=== PATIENT | male | born 1960 | race Two or more races ===

== ENCOUNTER → 2019-07-04 | Outpatient (CLI) | payer MEDICAID, MEDICARE | END | disposition home or self-care (01) | LOC: XYW 09:17 | PROVIDERS: ATTEND Internal Medicine | DX: I50.9 Heart failure, unspecified (principal) | CPT/HCPCS: 36600; 82805 ==

== ENCOUNTER → 2019-12-26 | Outpatient (CLI) | payer MEDICARE, MEDICAID | END | disposition home or self-care (01) | LOC: LAB 12:58 | PROVIDERS: ATTEND Internal Medicine | DX: I50.9 Heart failure, unspecified (principal); R05 Cough | CPT/HCPCS: 36415; 85379 ==

== ENCOUNTER 2020-01-03 15:37 | Emergency (ER) | payer MEDICARE, MEDICAID ==
[~2020-01-03] VITALS: Ht 167.6 cm; Wt 90.7 kg
[2020-01-03 19:03] VITALS: BP 123/77
== END 2020-01-03 19:16 | disposition home or self-care (01) ==
LOC: ER 15:37
DX: H57.11 Ocular pain, right eye (principal)
CPT/HCPCS: 70450

== ENCOUNTER → 2020-01-16 | Outpatient (CLI) | payer MEDICARE, MEDICAID | END | disposition home or self-care (01) | LOC: RT 11:37 | PROVIDERS: ATTEND Internal Medicine Pulmonary Disease | DX: R06.00 Dyspnea, unspecified (principal); R05 Cough | CPT/HCPCS: 94060 ==

== ENCOUNTER → 2020-02-06 | Outpatient (CLI) | payer MEDICARE, MEDICAID | END | disposition home or self-care (01) | LOC: LAB 10:55 | PROVIDERS: ATTEND Internal Medicine | DX: N18.6 End stage renal disease (principal); I50.9 Heart failure, unspecified; D64.9 Anemia, unspecified | CPT/HCPCS: 36415; 83880; 85652 ==

== ENCOUNTER 2020-03-19 15:10 | Inpatient (IN) | payer MEDICARE, MEDICAID ==
[~2020-03-19] VITALS: Ht 167.6 cm; Wt 90.7 kg
[2020-03-19] MEDS ORDERED: DexAMETHasone SOD PHOS 10MG/1ML VIAL INJ IV ONE (15:30)
[2020-03-19] MEDS ORDERED: AMIODARONE 450mg/250ml AE 250 ML IV SCH ×2 (17:00)
[2020-03-19] MEDS ORDERED: AMIODARONE HCL 150 MG in D5W 5% 100 ML IV ONE ×4 (17:00)
[2020-03-19] MEDS ORDERED: cloNIDine HCL 0.1 MG TAB PO ONE ×2 (17:00)
[2020-03-19] MEDS ORDERED: MORPHINE SULFATE INJECTION 2 MG/ML SYRG IV PRN ×3 (17:15→21:15)
[2020-03-19] MEDS ORDERED: NITROGLYCERIN 0.4 MG SL TAB SL PRN ×2 (17:15→21:15)
[2020-03-19] MEDS: NOREPINEPHRINE 8 MG/250ML KIT 250 ML IV SCH (17:15)
[2020-03-19] MEDS ORDERED: [UNRECOGNIZED DRUG - CODE] PO (17:18)
[2020-03-19] MEDS ORDERED: FURO40TA4 PO (17:23)
[2020-03-19] MEDS ORDERED: GLIP-110 PO (17:24)
[2020-03-19] MEDS ORDERED: DOXYCYCLINE 100MG/250ML 250 ML IV ONE (17:30)
[2020-03-19] MEDS ORDERED: LORazepam 2MG/ML-1ML VIAL IV ONE (18:00)
[2020-03-19 18:17] LABS: Albumin 2.9 g/dL (3.4-5.0); Calcium 9.7 mg/dL (8.5-10.1)
[2020-03-19 18:22] LABS: Basophils # (auto) 0 10 ^3/uL (0-0.2); Basophils % (auto) 0.4 % (0.0-2.0); Eosinophils # (auto) 0 10 ^3/uL (0-0.8); Eosinophils % (auto) 0.1 % (0.0-7.0); Hematocrit 46.1 % (41.0-53.0); Hemoglobin 15.1 g/dL (13.5-17.5); Lymphocytes # (auto) 0.3 10 ^3/uL (0.4-5.4); Lymphocytes % (auto) 7.1 % (10.0-50.0); Mean Corpuscular Hgb Conc. 32.8 g/dL (32.0-36.0); Mean Corpuscular Volume 91.6 fL (80.0-100.0); Monocytes # (auto) 0.1 10 ^3/uL (0-1.3); Monocytes % (auto) 4.1 % (0.0-12.0); Neutrophils # (auto) 3.2 10 ^3/uL (1.6-8.6); Neutrophils % (auto) 88.3 % (37.0-80.0); Nucleated Red Blood Cells % 0.3 %; Red Blood Cells 5.04 10^6/uL (4.5-5.90); Red Cell Distribution Width 17.6 % (11.8-14.3); White Blood Cell 3.7 10^3/uL (4.4-10.8)
[2020-03-19 18:26] LABS: BUN/Creatinine Ratio 8.4; CRP High Sensitivity 17.2 mg/dL (< 0.3)
[2020-03-19] MEDS ORDERED: IOHEXOL 350 MG/ML 100ML IJ ONE (18:37)
[2020-03-19] MEDS ORDERED: dilTIAZem 125mg/125ml BAG KIT 125 ML IV SCH (19:45)
[2020-03-19] MEDS ORDERED: LORazepam 0.5 MG TAB PO PRN (21:15)
[2020-03-19] MEDS ORDERED: ONDANSETRON HCL 4 MG/2 ML VIAL IV PRN (21:15)
[2020-03-19] MEDS ORDERED: HYDROcodone-ACET 5/325MG TAB PO PRN (21:15)
[2020-03-19] MEDS ORDERED: DEXTROSE (50%) 50ML SYRG IV PRN (21:15)
[2020-03-19] MEDS ORDERED: ACETAMINOPHEN 500 MG TAB PO PRN (21:15)
[2020-03-19] MEDS ORDERED: ALUM & MAG HYDROX-SIMETH LIQ(MAALOX) 30 ML PO PRN (21:15)
[2020-03-19] MEDS ORDERED: ALBUTEROL SULF HFA 90MCG INH 200DOSE IN PRN (21:15)
[2020-03-19] MEDS ORDERED: DOCUSATE SOD 100 MG CAP PO PRN (21:15)
[2020-03-19] MEDS: FUROSEMIDE 20 MG/2 ML VIAL IV SCH (21:35)
[2020-03-19] MEDS ORDERED: DOXYCYCLINE 100MG/250ML 250 ML IV SCH ×2 (22:00)
[2020-03-19] MEDS: BUDESONIDE (INHALATION) 180 MCG IH IN SCH (22:00)
[2020-03-19] MEDS ORDERED: ENOXAPARIN SOD 100 MG/1 ML SYRINGE SC ONE (22:00)
[2020-03-19 22:07] LABS: INR 1.38 (0.9-1.15); Partial Thromboplastin Time 34.5 sec (23.0-31.2)
[2020-03-19] MEDS: CHOLECALCIFEROL (VITD3) 2,000 UNIT CAP/TAB PO SCH (22:50)
[2020-03-19] MEDS: ZINC SULFATE 220mg CAP or TAB PO SCH (22:50)
[2020-03-19] MEDS: ASCORBIC ACID 1,000 MG TAB PO SCH (22:50)
[2020-03-19] MEDS: ACCU-CHEK COMFORT CURVE STRIP VI SCH (23:45)
[2020-03-19] MEDS: InsuLIN REG 1unit/0.01ml Soln (100units/ml) SC SCH (23:45)
[2020-03-20 01:08] LABS: Lactic Acid w/Reflex 2.7 mmol/L (0.4-2.0)
[2020-03-20] MEDS: FUROSEMIDE 20 MG/2 ML VIAL IV SCH ×2 (03:42→06:00)
[2020-03-20] MEDS ORDERED: FUROSEMIDE 40 MG/4 ML VIAL ONE (06:17)
[2020-03-20] MEDS: ACCU-CHEK COMFORT CURVE STRIP VI SCH ×4 (07:00→22:00)
[2020-03-20] MEDS: InsuLIN REG 1unit/0.01ml Soln (100units/ml) SC SCH ×4 (07:00→23:10)
[2020-03-20 07:01] LABS: Basophils # (auto) 0 10 ^3/uL (0-0.2); Basophils % (auto) 0.3 % (0.0-2.0); Eosinophils # (auto) 0 10 ^3/uL (0-0.8); Hematocrit 45.3 % (41.0-53.0); Hemoglobin 15.1 g/dL (13.5-17.5); Lymphocytes # (auto) 0.3 10 ^3/uL (0.4-5.4); Lymphocytes % (auto) 4.6 % (10.0-50.0); Mean Corpuscular Hemoglobin 30.2 pg (28.0-32.0); Mean Corpuscular Hgb Conc. 33.2 g/dL (32.0-36.0); Mean Corpuscular Volume 90.8 fL (80.0-100.0); Monocytes # (auto) 0.2 10 ^3/uL (0-1.3); Monocytes % (auto) 2.7 % (0.0-12.0); Neutrophils # (auto) 5.8 10 ^3/uL (1.6-8.6); Neutrophils % (auto) 92.4 % (37.0-80.0); Nucleated Red Blood Cells % 0.3 %; Red Blood Cells 4.99 10^6/uL (4.5-5.90); Red Cell Distribution Width 17.2 % (11.8-14.3); White Blood Cell 6.2 10^3/uL (4.4-10.8)
[2020-03-20 07:22] LABS: INR 1.35 (0.9-1.15); Partial Thromboplastin Time 37.2 sec (23.0-31.2)
[2020-03-20 07:48] LABS: Potassium 4.4 mmol/L (3.5-5.1)
[2020-03-20 08:02] LABS: Albumin 2.6 g/dL (3.4-5.0); BUN/Creatinine Ratio 9.7; Bilirubin, Total 2.4 mg/dL (0.2-1.0); CRP High Sensitivity 17.9 mg/dL (< 0.3); Calcium 9.2 mg/dL (8.5-10.1); Phosphorus 8.6 mg/dL (2.5-4.90); Total Protein 6.6 g/dL (6.4-8.2)
[2020-03-20] MEDS: BUDESONIDE (INHALATION) 180 MCG IH IN SCH ×2 (10:00→22:00)
[2020-03-20] MEDS ORDERED: IVERMECTIN 3 MG TAB PO ONE (10:00)
[2020-03-20] MEDS: ASCORBIC ACID 1,000 MG TAB PO SCH (10:00)
[2020-03-20] MEDS: CHOLECALCIFEROL (VITD3) 2,000 UNIT CAP/TAB PO SCH (10:00)
[2020-03-20] MEDS: ZINC SULFATE 220mg CAP or TAB PO SCH (10:00)
[2020-03-20] MEDS: DOXYCYCLINE 100MG/250ML 250 ML IV SCH ×2 (10:00→21:58)
[2020-03-20] MEDS: DexAMETHasone SOD PHOS 10MG/1ML VIAL INJ IV SCH (10:00)
[2020-03-20] MEDS ORDERED: SODIUM CHL 0.9% 1000 ML BAG XX ONE (10:00)
[2020-03-20] MEDS ORDERED: ENOXAPARIN SOD 100 MG/1 ML SYRINGE SC SCH (10:00)
[2020-03-20] MEDS ORDERED: REMDESIVIR PER PHARMACY 0 ML IV SCH (12:15)
[2020-03-20] MEDS ORDERED: diphenhdrAMINE HCL 50 MG/1 ML VL IV PRN (12:15)
[2020-03-20] MEDS ORDERED: REMDESIVIR 200 MG in NS 210ml LOADING DOSE ADULT IV ONE (15:00)
[2020-03-20 15:30] VITALS: BP 119/56
[2020-03-20] MEDS: NOREPINEPHRINE 8 MG/250ML KIT 250 ML IV SCH (17:15)
[2020-03-20 18:00] VITALS: BP 119/59
[2020-03-20] MEDS ORDERED: FUROSEMIDE 40 MG/4 ML VIAL IV SCH (18:00)
[2020-03-20] MEDS: METOPROLOL SUCCINATE XL 50 MG TAB PO SCH (22:03)
[2020-03-20 22:10] VITALS: BP 110/55
[2020-03-21 03:00] VITALS: BP 104/45
[2020-03-21] MEDS: ACCU-CHEK COMFORT CURVE STRIP VI SCH ×4 (05:51→22:00)
[2020-03-21] MEDS: InsuLIN REG 1unit/0.01ml Soln (100units/ml) SC SCH ×4 (05:52→21:55)
[2020-03-21 07:19] LABS: Albumin 2.4 g/dL (3.4-5.0); Calcium 8.4 mg/dL (8.5-10.1); Potassium 4.1 mmol/L (3.5-5.1)
[2020-03-21 07:20] VITALS: BP 118/53
[2020-03-21 07:24] LABS: Bilirubin, Total 1.8 mg/dL (0.2-1.0)
[2020-03-21] MEDS ORDERED: LORazepam 2MG/ML-1ML VIAL ONE (09:38)
[2020-03-21] MEDS ORDERED: LORazepam 2MG/ML-1ML VIAL IV PRN (09:45)
[2020-03-21] MEDS: BUDESONIDE (INHALATION) 180 MCG IH IN SCH (10:00)
[2020-03-21] MEDS: ASCORBIC ACID 1,000 MG TAB PO SCH ×2 (10:11→10:39)
[2020-03-21] MEDS: DOXYCYCLINE 100MG/250ML 250 ML IV SCH ×2 (10:11→22:00)
[2020-03-21] MEDS: DexAMETHasone SOD PHOS 10MG/1ML VIAL INJ IV SCH (10:11)
[2020-03-21] MEDS: CHOLECALCIFEROL (VITD3) 2,000 UNIT CAP/TAB PO SCH ×2 (10:11→10:39)
[2020-03-21] MEDS: ZINC SULFATE 220mg CAP or TAB PO SCH ×2 (10:11→10:38)
[2020-03-21] MEDS: METOPROLOL SUCCINATE XL 50 MG TAB PO SCH ×3 (10:11→22:00)
[2020-03-21 12:00] VITALS: BP 117/64
[2020-03-21] MEDS ORDERED: ETOMIDATE (2MG/ML) 20ML VIAL IV ONE (12:53)
[2020-03-21] MEDS ORDERED: ROCURONIUM 10MG/ML 10ML VIAL IV ONE ×2 (12:53→13:45)
[2020-03-21] MEDS ORDERED: fentaNYL Drip 2500mCg/250mlNS 250 ML IV ONE (12:59)
[2020-03-21] MEDS ORDERED: MIDAZOLAM DRIP 50 mg/50mL 50 ML IV ONE (12:59)
[2020-03-21 13:19] LABS: Hepatitis B Surface Antigen Negative (Negative)
[2020-03-21 13:20] LABS: Hepatitis A Ab IgM Negative; Hepatitis B Core IgM Negative; Hepatitis C Antibody Negative (Negative)
[2020-03-21] MEDS: fentaNYL Drip 2500mCg/250mlNS 250 ML IV SCH (13:20)
[2020-03-21] MEDS: MIDAZOLAM DRIP 50 mg/50mL 50 ML IV SCH ×2 (13:21→21:42)
[2020-03-21] MEDS ORDERED: NOREPINEPHRINE 8 MG/250ML KIT 250 ML IV ONE (14:28)
[2020-03-21] MEDS: NOREPINEPHRINE 8 MG/250ML KIT 250 ML IV SCH (14:28)
[2020-03-21] MEDS ORDERED: FAMOTIDINE (10MG/ML) 2ML VL IV SCH (15:25)
[2020-03-21] MEDS ORDERED: ONDANSETRON HCL 4 MG/2 ML VIAL IV PRN (16:15)
[2020-03-21] MEDS ORDERED: MORPHINE SULFATE INJECTION 2 MG/ML SYRG IV PRN (16:15)
[2020-03-21] MEDS: REMDESIVIR 100mg 100 MG in SODIUM CHL 0.9% 230 ML IV SCH (16:53)
[2020-03-21 18:30] VITALS: BP 99/56
[2020-03-21 22:30] VITALS: BP 97/56
[2020-03-22] MEDS: MIDAZOLAM DRIP 50 mg/50mL 50 ML IV SCH (00:50)
[2020-03-22 02:10] VITALS: BP 98/56
[2020-03-22] MEDS ORDERED: dilTIAZem 25 MG/5 ML VIAL IV PRN (04:00)
[2020-03-22] MEDS: InsuLIN REG 1unit/0.01ml Soln (100units/ml) SC SCH ×2 (05:58→11:48)
[2020-03-22] MEDS: ACCU-CHEK COMFORT CURVE STRIP VI SCH ×2 (05:59→12:57)
[2020-03-22 06:21] LABS: Basophils # (auto) 0.1 10 ^3/uL (0-0.2); Basophils % (auto) 0.3 % (0.0-2.0); Eosinophils # (auto) 0 10 ^3/uL (0-0.8); Hematocrit 52.3 % (41.0-53.0); Hemoglobin 17.1 g/dL (13.5-17.5); Lymphocytes # (auto) 0.8 10 ^3/uL (0.4-5.4); Lymphocytes % (auto) 4.3 % (10.0-50.0); Mean Corpuscular Hemoglobin 29.7 pg (28.0-32.0); Mean Corpuscular Hgb Conc. 32.7 g/dL (32.0-36.0); Mean Corpuscular Volume 90.8 fL (80.0-100.0); Monocytes # (auto) 0.8 10 ^3/uL (0-1.3); Monocytes % (auto) 4.8 % (0.0-12.0); Neutrophils # (auto) 15.8 10 ^3/uL (1.6-8.6); Neutrophils % (auto) 90.6 % (37.0-80.0); Nucleated Red Blood Cells % 2.2 %; Red Blood Cells 5.76 10^6/uL (4.5-5.90); Red Cell Distribution Width 17.5 % (11.8-14.3); White Blood Cell 17.5 10^3/uL (4.4-10.8)
[2020-03-22 06:37] LABS: Albumin 2.6 g/dL (3.4-5.0); BUN/Creatinine Ratio 10.5; Calcium 8.5 mg/dL (8.5-10.1); Potassium 5.3 mmol/L (3.5-5.1)
[2020-03-22 06:40] LABS: Bilirubin, Total 2.4 mg/dL (0.2-1.0); Total Protein 7.2 g/dL (6.4-8.2)
[2020-03-22 06:51] VITALS: BP 109/93
[2020-03-22] MEDS: BUDESONIDE (INHALATION) 180 MCG IH IN SCH (07:44)
[2020-03-22] MEDS: ASCORBIC ACID 1,000 MG TAB PO SCH (10:00)
[2020-03-22] MEDS: ZINC SULFATE 220mg CAP or TAB PO SCH (10:00)
[2020-03-22] MEDS: DexAMETHasone SOD PHOS 10MG/1ML VIAL INJ IV SCH (10:00)
[2020-03-22] MEDS: DOXYCYCLINE 100MG/250ML 250 ML IV SCH (10:00)
[2020-03-22] MEDS: CHOLECALCIFEROL (VITD3) 2,000 UNIT CAP/TAB PO SCH (10:00)
[2020-03-22] MEDS: METOPROLOL SUCCINATE XL 50 MG TAB PO SCH (10:00)
[2020-03-22 10:45] VITALS: BP 183/94
[2020-03-22] MEDS: fentaNYL Drip 2500mCg/250mlNS 250 ML IV SCH (13:17)
[2020-03-22 14:10] VITALS: BP 144/66
[2020-03-22] MEDS ORDERED: BUMETANIDE 2.5mg/10ml (0.25 mg/ml) INJ IV SCH (15:00)
[2020-03-22] MEDS: REMDESIVIR 100mg 100 MG in SODIUM CHL 0.9% 230 ML IV SCH (15:00)
[2020-03-22] MEDS ORDERED: MORPHINE SULFATE INJECTION 2 MG/ML SYRG ONE (17:43)
[2020-03-22] MEDS ORDERED: LORazepam 2MG/ML-1ML VIAL ONE (17:43)
[2020-03-22] MEDS ORDERED: LORazepam 2MG/ML-1ML VIAL IV PRN (17:45)
[2020-03-22] MEDS ORDERED: MORPHINE SULFATE INJECTION 2 MG/ML SYRG IV PRN (17:45)
[2020-03-22 17:50] VITALS: BP 171/51
[2020-03-22] MEDS ORDERED: SODIUM BICARBONATE 8.4% INJ 50ML SYRINGE IV ONE (17:57)
[2020-03-22] MEDS ORDERED: EPINEPHrine HCL 1 MG/10 ML SYRG IV ONE (17:57)
[2020-03-22] MEDS ORDERED: DOPamine 1600mCg/ml 400MG/250ml NSorD5 KIT/BAG IV ONE (17:57)
[2020-03-22] MEDS ORDERED: SODIUM CHL 0.9% 1000 ML BAG XX ONE (19:00)
[2020-03-22] MEDS ORDERED: EPOETIN ALFA 4,000 UNIT/ML VL SC ONE (21:00)
[2020-03-23] MEDS ORDERED: SODIUM CHL 0.9% 1000 ML BAG XX ONE (07:00)
[2020-03-23] MEDS ORDERED: ENOXAPARIN SOD 30 MG/0.3 ML SYRINGE SC SCH (10:00)
[2020-03-23] MEDS ORDERED: EPOETIN ALFA 4,000 UNIT/ML VL SC ONE (21:00)
== END 2020-03-22 17:58 | DRG 871 ==
LOC: ER 15:10 → TELE 15:11
PROVIDERS: ADMIT Hospitalist; ATTEND Internal Medicine
PROC: 5A09357 Assistance with Respiratory Ventilation, Less than 24 Consecutive Hours, Continuous Positive Airway Pressure (ICD-10-PCS; 2020-03-20)
PROC: 5A1D70Z Performance of Urinary Filtration, Intermittent, Less than 6 Hours Per Day (ICD-10-PCS; 2020-03-20)
PROC: 02HV33Z Insertion of Infusion Device into Superior Vena Cava, Percutaneous Approach (ICD-10-PCS; principal; 2020-03-21)
PROC: 5A1935Z Respiratory Ventilation, Less than 24 Consecutive Hours (ICD-10-PCS; 2020-03-21)
PROC: B548ZZA Ultrasonography of Superior Vena Cava, Guidance (ICD-10-PCS; 2020-03-21)
PROC: 0BH17EZ Insertion of Endotracheal Airway into Trachea, Via Natural or Artificial Opening (ICD-10-PCS; 2020-03-21)
PROC: 04HY32Z Insertion of Monitoring Device into Lower Artery, Percutaneous Approach (ICD-10-PCS; 2020-03-21)
PROC: 4A133B1 Monitoring of Arterial Pressure, Peripheral, Percutaneous Approach (ICD-10-PCS; 2020-03-21)
PROC: 4A133J1 Monitoring of Arterial Pulse, Peripheral, Percutaneous Approach (ICD-10-PCS; 2020-03-21)
DX: A41.89 Other specified sepsis (principal); U07.1 COVID-19; J12.82 Pneumonia due to coronavirus disease 2019; J96.01 Acute respiratory failure with hypoxia; N18.6 End stage renal disease; E43 Unspecified severe protein-calorie malnutrition; I21.A1 Myocardial infarction type 2; I50.33 Acute on chronic diastolic (congestive) heart failure; D68.59 Other primary thrombophilia; E87.1 Hypo-osmolality and hyponatremia; I13.2 Hypertensive heart and chronic kidney disease with heart failure and with stage 5 chronic kidney disease, or end stage renal disease; I48.20 Chronic atrial fibrillation, unspecified; R57.9 Shock, unspecified; E11.21 Type 2 diabetes mellitus with diabetic nephropathy; Z99.2 Dependence on renal dialysis; I25.5 Ischemic cardiomyopathy; K74.60 Unspecified cirrhosis of liver; R16.1 Splenomegaly, not elsewhere classified; D69.6 Thrombocytopenia, unspecified; E11.22 Type 2 diabetes mellitus with diabetic chronic kidney disease; E66.9 Obesity, unspecified; E11.40 Type 2 diabetes mellitus with diabetic neuropathy, unspecified; Z66 Do not resuscitate; Z53.29 Procedure and treatment not carried out because of patient's decision for other reasons; I25.10 Atherosclerotic heart disease of native coronary artery without angina pectoris; Z68.32 Body mass index [BMI] 32.0-32.9, adult; Z82.49 Family history of ischemic heart disease and other diseases of the circulatory system; Z83.3 Family history of diabetes mellitus
CPT/HCPCS: 36415; 36600; 71045; 71046; 71275; 76700; 80053; 80061; 80074; 82306; 82550; 82728; 82805; 82962; 83036; 83605; 83615; 83735; 83880; 84100; 84443; 84484; 85025; 85379; 85610; 85730; 86141; 86850; 86900; 86901; 87040; 87070; 87205; 87426; 90935; 93005; 93306; 94002; 94003; 94660; 96365; 96368; 96375; 99291; G0378; J1100; J2250; J3490; J7060